=== PATIENT | male | born 1965 | race Native Hawaiian/Other Pacific Islander ===

== ENCOUNTER 2023-01-19 18:35 | Emergency (ER) | payer OTHER ==
[~2023-01-19] VITALS: Ht 175.3 cm; Wt 54.4 kg
[2023-01-19 18:35] VITALS: TEMP 97.7
[2023-01-19 19:22] LABS: PLATELET COUNT 243 K/uL (142-355)
[2023-01-19 19:37] LABS: SODIUM 140 mmol/L (136-145)
[2023-01-19 19:56] VITALS: BP 104/65
== END 2023-01-19 20:33 ==
LOC: ED 18:35
PROVIDERS: Emergency Medicine
DX: K29.70 Gastritis, unspecified, without bleeding (principal); K21.9 Gastro-esophageal reflux disease without esophagitis; F17.210 Nicotine dependence, cigarettes, uncomplicated
CPT/HCPCS: 80053; 84484; 85027; 93005; 96374; 99284; J2405